=== PATIENT | female | born 1985 | race African-American/Black ===

== ENCOUNTER 2021-12-12 18:56 | Emergency (ER) | payer OTHER, SELFPAY ==
[2021-12-12] MEDS ORDERED: Ibuprofen 800 MG TAB ONE (20:24)
== END 2021-12-12 21:00 | disposition home or self-care (01) ==
LOC: ERS 18:56
DX: S16.1XXA Strain of muscle, fascia and tendon at neck level, initial encounter (principal); S39.012A Strain of muscle, fascia and tendon of lower back, initial encounter; V53.6XXA Passenger in pick-up truck or van injured in collision with car, pick-up truck or van in traffic accident, initial encounter
CPT/HCPCS: 99283